=== PATIENT | male | born 1950 | race Hispanic/Latino ===

== ENCOUNTER 2023-09-11 13:09 | Emergency (ER) | payer OTHER ==
[2023-09-11 14:51] LABS: ALT (SGPT) 16 U/L (8-55); AST (SGOT) 16 U/L (5-34); Albumin 4.2 g/dL (3.4-4.8); Alkaline Phosphatase 81 U/L (40-110); Anion Gap 16 mmol/L (10-20); BUN (Urea Nitrogen) 19 mg/dL (8.4-25.7); Bilirubin, Total 0.6 mg/dL (0.2-1.2); Calc. Creatinine Clearance 0 mL/min (70-130); Calcium 8.9 mg/dL (7.8-10.44); Carbon Dioxide 22 mmol/L (23-31); Chloride 107 mmol/L (98-107); Estimated GFR 72; Globulin 2.7 g/dL (2.4-3.5); Glucose 87 mg/dL (83-110); Potassium 3.9 mmol/L (3.5-5.1); Protein, Total 6.9 g/dL (5.8-8.1); Sodium 141 mmol/L (136-145)
[2023-09-11 14:55] LABS: Troponin I Less than 0.010 ng/mL (< 0.028)
[2023-09-11 14:57] LABS: #Eosinphils 0.1 10x3/uL (0.0-0.5); #Monocytes 0.3 10x3/uL (0.0-1.1); %Basophils 0.4 % (0.0-2.0); %Eosinophils 1.3 % (0.0-6.0); %Lymphocytes 25.5 % (18.0-47.0); %Neutrophils 65.6 % (40.0-75.0); Hematocrit 41.8 % (38.8-50.0); Hemoglobin 13.8 g/dL (13.5-17.5); Mean Corpuscular Hemoglobin 31.6 pg (27.0-33.0); Mean Corpuscular Volume 95.7 fl (81.2-95.1); Mean Platelet Volume 11.3 fl (7.4-10.4); Platelet Count 216 10x3/uL (150-450); Red Blood Cell (RBC) Count 4.37 10x6/uL (4.32-5.72); White Blood Cell (WBC) Count 4.6 10x3/uL (3.5-10.5)
[2023-09-11 15:59] LABS: Bilirubin Neg (Negative); Blood, Urine Negative (Negative); Clarity Clear (Clear); Glucose, Urine (Dipstick) Normal (Negative); Ketone, Urine Negative (Negative); Leukocyte Negative (Negative); Nitrite Negative (Negative); Protein, Urine (Dipstick) 15 mg/dl (Neg-Trace); Urobilinogen Normal mg/dL (Less than 2)
[2023-09-11 16:15] LABS: Bacteria/HPF None Seen HPF (None Seen); CAUTI Indications for Culture Dysuria,urgency,freq; RBC/HPF None Seen HPF (0-3); Squamous Epithelial 0-3 HPF (0-3); Urine Culture Reflex No No; WBC/HPF None Seen HPF (0-3)
== END 2023-09-11 17:47 | disposition home or self-care (01) ==
LOC: CSHERS 13:09
DX: R55 Syncope and collapse (principal); E78.00 Pure hypercholesterolemia, unspecified; E78.5 Hyperlipidemia, unspecified; I10 Essential (primary) hypertension
CPT/HCPCS: 70450; 80053; 81001; 84484; 85025; 93005